=== PATIENT | female | born 1960 | race Caucasian/White ===

== ENCOUNTER 2024-07-03 08:00 | Observation (INO) ==
--- NOTE | 2024-06-26 10:39 | Anesthesiology Consultation ---
Date of Service June 26, 2024 Assessment & Plan Chart Review Chart Review: Acceptable Risk for Surgery and Patient NOT seen in Pre Admission Testing Consults Requested none History Surgery Operation Date: 07/03/24 08:15 Proposed Procedures p OP: Right Total Knee Replacement - Cristiano Hager MD Height/Weight Height: 5 ft Weight: 77.111 kg Allergies Allergy/AdvReac Type Severity Reaction Status Date / Time prochlorperazine Allergy Severe Swelling Verified 06/23/24 15:01 [From Compazine] of Lip/Tongue/Throat levofloxacin [From Levaquin] AdvReac Intermediate feels weird Verified 06/23/24 15:01 sulfamethoxazole AdvReac Intermediate feels weird Verified 06/23/24 15:01 [From Bactrim] tramadol AdvReac Intermediate interferes Verified 06/23/24 15:01 w/ trintellix trimethoprim [From Bactrim] AdvReac Intermediate feels weird Verified 06/23/24 15:01 Medications Home Medications Medication Instructions Recorded Confirmed Last Taken Bifidobacterium infantis 4 mg 4 mg PO DAILY 12/18/23 06/23/24 01/23/24 10:30 capsule (Align) bupropion HCl 300 mg 24 hr tablet, 300 mg PO QAM 12/18/23 06/23/24 01/23/24 10:30 extended release (Wellbutrin XL) calcitriol 0.5 mcg capsule 0.5 mcg PO HS 12/18/23 06/23/24 01/23/24 23:00 dextroamphetamine-amphetamine 10 10 mg PO QAM 12/18/23 06/23/24 01/23/24 10:30 mg tablet (Adderall) lorazepam 1 mg tablet (Ativan) 1 - 1.5 mg PO BID PRN interstitial 12/18/23 06/23/24 01/23/24 23:00 cystitis 1.5 tabs rosuvastatin 5 mg tablet 5 mg PO HS 12/18/23 06/23/24 01/23/24 23:00 trazodone 50 mg tablet 50 mg PO HS 12/18/23 06/23/24 01/23/24 23:00 valsartan 320 1 tab PO QAM 12/18/23 06/23/24 01/24/24 04:15 mg-hydrochlorothiazide 12.5 mg tablet vortioxetine 20 mg tablet 20 mg PO QAM 12/18/23 06/23/24 01/23/24 10:30 (Trintellix) Hydrocodone Polistirex 1 dose PO BID PRN interstitial 06/23/24 06/23/24 Unknown cystitis cholecalciferol (vitamin D3) 50 50 mcg PO DAILY 06/23/24 06/23/24 Unknown mcg (2,000 unit) capsule (Vitamin D3) Past Medical History Medical History Hyperglycemia Hgb A1C 6.2 in 10/2023 Heart murmur mild - most recent ECHO 05/2023 No significant murmur noted at PAT appt 12/19/23 Anxiety Depression ADD (attention deficit disorder) Dyslipidemia HTN (hypertension) Interstitial cystitis Past Family History Family History Other No family history of adverse response to anesthesia Past Surgical History Surgical History History of left knee replacement (01/24/24) [facility] Hx of colonoscopy Hx of tooth extraction Hx of cystoscopy "bladder stretching" Social History Smoking Status: Current every day smoker Smoking cigarettes per day: 7-8 cigs per day- advised Do You Dip or Chew Tobacco: No Hx Alcohol Use: Yes Alcohol type: wine alcohol intake frequency: a few times a week Hx Substance Use: No substance use type: does not use Lab Results Anesthesia Preop Results Results Anesthesia Widget: WBC 7.20 K/ul (4.8-10.8) 06/23/24 Hgb 12.9 g/dl (12.0-16.0) 06/23/24 Hct 39.7 % (37.0-47.0) 06/23/24 Plt 242 K/uL (130-400) 06/23/24 Na 139 mmol/L (136-145) 06/23/24 K 4.3 mmol/L (3.5-5.1) 06/23/24 Cl 102 mmol/L (98-107) 06/23/24 CO2 29 mmol/L (21-32) 06/23/24 BUN 19 mg/dl (6-23) 06/23/24 Creat 0.69 mg/dl (0.6-1.2) 06/23/24 Glucose Level 116 mg/dl (70-99(Fasting)) H 06/23/24 PT 10.1 Seconds (9.0-12.0) 06/23/24 PTT 25 Seconds (21-31) 06/23/24 INR 0.9 (0.9-1.1) 06/23/24 Testing Electrocardiogram Date: 05/10/23 SR at 74bpm Normal EKG per confirming provider Chest X-Ray Date: 12/19/23 FINDINGS: No lines and tubes are seen. The cardiomediastinal silhouette is normal. The lungs are clear. No evidence of pleural effusion or pneumothorax. IMPRESSION: No acute abnormalities and in particular no radiographic evidence of pneumonia. Echocardiogram Date: 06/06/23 Date: 06/06/23 EF: 60-65% LV Function: normal RWMA: + none Other Findings: + LVH (mild) and + diastolic dysfunction (Grade I ) Borderline MVP appears to be present. AV appears sclerotic with preserved opening in systole. Trace AR. There is an eccentric jet of aortic insufficiency directed against the anterior mitral leaflet. No
--- NOTE | 2024-07-01 15:46 | History & Physical Report ---
Date of Service July 01, 2024 Assessment & Plan (1) DJD (degenerative joint disease) of knee: Plan: Right total knee replacement with patient's specific technology possible same- day surgery [facility] health [facility] with [facility] History of Present Illness Chief Complaint: Right knee pain Primary Care Provider: Chuck Mohan MD Patient is an obese 63-year-old female without a history of bilateral severe knee severe knee arthritis. She had successful left total knee replacement done 01/24/2024. She was planned for staged right knee replacement in February but needed more time to recover. She now presents for elective second stage right knee replacement. She has failed injections bracing and physical therapy she has radiographic evidence of end-stage disease with [id number] contact varus deformity. Allergies Allergy/AdvReac Type Severity Reaction Status Date / Time prochlorperazine Allergy Severe Swelling Verified 06/23/24 15:01 [From Compazine] of Lip/Tongue/Throat levofloxacin [From Levaquin] AdvReac Intermediate feels weird Verified 06/23/24 15:01 sulfamethoxazole AdvReac Intermediate feels weird Verified 06/23/24 15:01 [From Bactrim] tramadol AdvReac Intermediate interferes Verified 06/23/24 15:01 w/ trintellix trimethoprim [From Bactrim] AdvReac Intermediate feels weird Verified 06/23/24 15:01 Home Medications Medication Instructions Recorded Confirmed Type Bifidobacterium infantis 4 mg 4 mg PO DAILY 12/18/23 06/23/24 History capsule (Align) bupropion HCl 300 mg 24 hr tablet, 300 mg PO QAM 12/18/23 06/23/24 History extended release (Wellbutrin XL) calcitriol 0.5 mcg capsule 0.5 mcg PO HS 12/18/23 06/23/24 History dextroamphetamine-amphetamine 10 10 mg PO QAM 12/18/23 06/23/24 History mg tablet (Adderall) lorazepam 1 mg tablet (Ativan) 1 - 1.5 mg PO BID PRN interstitial 12/18/23 06/23/24 History cystitis rosuvastatin 5 mg tablet 5 mg PO HS 12/18/23 06/23/24 History trazodone 50 mg tablet 50 mg PO HS 12/18/23 06/23/24 History valsartan 320 1 tab PO QAM 12/18/23 06/23/24 History mg-hydrochlorothiazide 12.5 mg tablet vortioxetine 20 mg tablet 20 mg PO QAM 12/18/23 06/23/24 History (Trintellix) Hydrocodone Polistirex 1 dose PO BID PRN interstitial 06/23/24 06/23/24 History cystitis cholecalciferol (vitamin D3) 50 50 mcg PO DAILY 06/23/24 06/23/24 History mcg (2,000 unit) capsule (Vitamin D3) Past Med/Surg History Problem List DJD (degenerative joint disease) of knee Encounter for pre-operative examination Medical History Hyperglycemia Hgb A1C 6.2 in 10/2023 Heart murmur mild - most recent ECHO 05/2023 No significant murmur noted at PAT appt 12/19/23 Anxiety Depression ADD (attention deficit disorder) Dyslipidemia HTN (hypertension) Interstitial cystitis Surgical History History of left knee replacement (01/24/24) [facility] Hx of colonoscopy Hx of tooth extraction Hx of cystoscopy "bladder stretching" Family History Other No family history of adverse response to anesthesia Social History Smoking Status: Current every day smoker Tobacco Type: Cigarettes Cigarettes Per Day: 7-8 cigs per day- advised; Second Hand Exposure: No; Do You Dip or Chew Tobacco: No; Hx Alcohol Use: Yes Alcohol type: wine Hx Substance Use: No Preferred Language: Telugu Communication Ability: Effective Solid Die Cutter Required: No Beliefs That Will Affect Care: None Current Living Situation: Spouse Feels Safe at Home: Yes Assistive Devices: None Review of Systems Review of Systems: Knee pain Physical Exam Physical Exam: Weight 79 kg BMI 34 General: Obese female who appears older than her stated age HEENT NCAT, EOMI, PERRLA Neck: Supple without bruits Heart: Regular rate and rhythm grade 1/6 to 2/6 systolic murmur Lungs: Breath sounds clear in all matute Abdomen: Obese soft nontender bowel sounds are positive Extremities: Right knee shows varus deformity range of motion is 0 to 110 degrees of flexion with trace medial laxity positive effusion and pain Left knee shows well-healed scar consistent with previous surgery Neurological and vascular: Intact Results & Data Results & Data Vital Signs (Past 12 Hours) Blood pressure 120/78 Pulse 82
[~2024-07-03 08:00] MED LIST: BUPIVACAINE 0.25% PF 30 ML VIAL ONE; DEXAMETHASONE SOD INJ 4 MG/ML VIAL ONE; EPINEPHrine INJ 1 MG/ML AMP ONE; MEPIVACAINE HCL 1.5% 30 ML VIAL ONE
[2024-07-03] MEDS: LR 500ML BOLUS, THEN 15ML/HR IV SCH (09:02)
[2024-07-03] MEDS: GABAPENTIN 300 MG CAP PO SCH (09:24)
[2024-07-03] MEDS: LR 60ML/HR IV SCH (09:24)
[2024-07-03] MEDS: FAMOTIDINE 20 MG TAB PO SCH (09:24)
[2024-07-03] MEDS: ACETAMINOPHEN 500 MG TAB PO SCH (09:24)
[2024-07-03] MEDS: oxyCODONE HCL 10 MG TABCR (OxyCONTIN) PO SCH (09:24)
[2024-07-03] MEDS: METOCLOPRAMIDE HCL 10 MG TABLET PO SCH (09:24)
[2024-07-03] MEDS: dexAMETHasone**PF** 10 MG/ML VIAL IV SCH (09:29)
--- NOTE | 2024-07-03 09:35 | History & Physical Bridge Note ---
Date of Service July 03, 2024 History & Physical Bridge Note I have examined the patient, reviewed the History & Physical and in the interval since the performance of the History & Physical I have noted the following changes of clinical significance: no changes noted
[2024-07-03] MEDS ORDERED: MIDAZOLAM HCL 1 MG/ML 2ML VIAL ONE ×2 (09:54→09:57)
[2024-07-03] MEDS ORDERED: ATROPINE SULFATE 0.1 MG/ML 10ML SYR IV PRN (09:58)
[2024-07-03] MEDS ORDERED: ONDANSETRON INJ 2 MG/ML 2 ML VIAL IV PRN ×2 (09:58→17:57)
[2024-07-03] MEDS ORDERED: ePHEDrine sulfate 50 MG/ML AMP IV PRN (09:58)
[2024-07-03] MEDS ORDERED: ONDANSETRON INJ 2 MG/ML 2 ML VIAL ONE (10:43)
[2024-07-03] MEDS ORDERED: PROPOFOL IV EMULSION 10 MG/ML 20 ML VIAL IV ONE ×3 (10:43→12:35)
[2024-07-03] MEDS: TRANEXAMIC ACID 1,000 MG **IV Pre-op IV SCH (10:51)
[2024-07-03] MEDS: ceFAZolin 2000MG 2,000 MG/15 ML SYR IV SCH ×2 (11:11→21:32)
[2024-07-03] MEDS ORDERED: LIDOCAINE 2% 2 ML VIAL/AMP(20MG/ML) INFIL ONE (11:24)
[2024-07-03] MEDS: ORTHO JOINT ANESTHETIC ONE (11:50)
[2024-07-03] MEDS: ROPIV 0.5% 246mg, Ketorolac 30mg, EPINEPHrine 0.5mg in NSS INFIL SCH (11:50)
[2024-07-03] MEDS ORDERED: LABETALOL HCL IV 5 MG/ML 20ML IV ONE (11:57)
[2024-07-03] MEDS ORDERED: KETOROLAC 30 MG/ML VIAL ONE (12:14)
--- NOTE | 2024-07-03 12:17 | Post Operative Brief Note ---
Immediate Post Op Note Date of Surgery July 03, 2024 Pre & Post Diagnosis Operation Date: 07/03/24 10:35 Pre-Op Diagnosis: Right Knee Degenerative Joint Disease Post-Op Diagnosis: Right Knee Degenerative Joint Disease I identified the patient and participated in the time-out.: Yes Procedure Operation Date: 07/03/24 10:35 Actual Procedures p Right Total Knee Replacement(Right) - Cristiano Hager MD Surgeon Cristiano Hager MD [employer] Digeo Suárez PA-C Estimated Blood Loss 100 Findings Consistent with Post-Op Diagnosis Drains Hemovac Drain
[2024-07-03] MEDS: TRANEXAMIC ACID 1,000 MG **IV Intra-op IV SCH (12:19)
[2024-07-03] MEDS: fentaNYL citrate PF 100 MCG/2 ML VIAL IV PRN (13:18)
[2024-07-03] MEDS: oxyCODONE HCL IR 5 MG TAB (IMMEDIATE RELEASE) PO PRN ×2 (14:08→16:58)
--- NOTE | 2024-07-03 14:29 | Operative Report ---
Post Operative Report Pre & Post Diagnosis Operation Date: 07/03/24 10:35 Pre-Op Diagnosis: Right Knee Degenerative Joint Disease Post-Op Diagnosis: Right Knee Degenerative Joint Disease I identified the patient and participated in the time-out.: Yes Procedure Operation Date: 07/03/24 10:35 Actual Procedures p Right Total Knee Replacement(Right) - Cristiano Hager MD Surgeon Cristiano Hager MD [employer] Ho[employer] Operator Diego Suárez PA-C Estimated Blood Loss 100 Findings Consistent with Post-Op Diagnosis Patient had tricompartmental degenerative changes. There was a severely chronically inflamed synovial lining. Patient had an extremely bulky small body stature although she had a heavy short leg curve bony components were extremely small. Specimens Bone and cartilage fragments Complications none Indications components used: [employer] journey 2 posterior stabilized knee system: Femur size 2 with Oxinium coating, tibia size 2 x 11, patella size 32 oval. Description of Procedure Following satisfactory spinal anesthesia the patient was supine on the operating room table. The right lower extremity was prepared with ChloraPrep and draped sterilely. A surgical timeout was performed. A midline incision was made and deepened through a fairly large subcutaneous fat layer. Hemostasis was obtained. A median parapatellar arthrotomy was performed and the knee showed the changes noted above. Because of the short stature and tight nature of the exposure attention was turned to the patella. The patella was freehand cut and sized for a 32 button which did relax the extensor mechanism and enhanced exposure to the lateral side of the knee. The cruciate ligaments were excised. The patient matched femoral block was applied. Femoral distal rotation and resection resetting completed. The 4-in-1 block was used to finish preparation of the femur. The tibial meniscal fragments were excised. The patient matched tibial block was applied. Tibial resection was completed. Soft tissue balancing was completed for flexion and extension. A trial reduction with the above-mentioned components was performed. This showed good tensioning and stability on the collateral ligaments from extension to about 115 degrees of flexion and the patella tracked well throughout. The trial components were removed. Capsule was prepared with the orthopedic cocktail. After irrigation and drying the components were cemented using Manpreet Z be cement cementing the tibia first, femur second, and patella third. When the cemented hardened the knee was checked and showed similar stability and patellar tracking. The wound was irrigated with 500 cc of experience irrigation. A Hemovac drain was placed. The capsulotomy was closed with interrupted [id number] sutures of 1 Vicryl and a running suture of #1 strata fix. Following irrigation the subcutaneous tissues were closed with 2 oh strata fix deep and 3 oh strata fix superficial. Dermabond Prineo and a negative pressure wound dressing were applied. Patient was returned to her bed and taken to the recovery room having tolerated the procedure in good condition. Note: Diego ARIAS was present and assisted throughout due to the complicated nature of this case. He help with preparation and set up, he first assisted throughout, he assisted with hemostasis and exposure throughout the procedure. He also closed the capsular subcutaneous and skin layers and applied the postop dressing. I attest to the content of the Intraoperative Record and any orders documented therein. Any exceptions are noted below.
--- NOTE | 2024-07-03 14:32 | Anesthesiology Progress Note ---
Date of Service July 03, 2024 Anesthesia Post Procedure Vital Signs Vital Signs: Temp Pulse Pulse Resp BP Pulse Ox O2 Del Method 07/03/24 14:20 64 18 166/99 H 96 Room Air 07/03/24 13:40 36.4 C L 61 18 146/77 H 97 Room Air 07/03/24 13:35 58 L 18 155/70 H 93 Room Air 07/03/24 13:25 58 L 20 139/86 93 Room Air 07/03/24 13:15 36.4 C L 57 L 18 155/87 H 96 Room Air 07/03/24 13:05 54 L 15 163/85 H 100 Oxymask 07/03/24 12:55 36.5 C 57 L 15 122/100 97 Oxymask 07/03/24 09:07 36.8 C 73 18 167/93 H 97 Room Air O2 Flow Rate 07/03/24 14:20 07/03/24 13:40 07/03/24 13:35 07/03/24 13:25 07/03/24 13:15 07/03/24 13:05 6 07/03/24 12:55 6 07/03/24 09:07 Pain Intensity Left Shoulder: Pain Intensity: 5 Right Knee: Pain Intensity: 3 Left Knee: Pain Intensity: 6 Transfer of Care Handoff Completed per policy Notes Mental Status: alert / awake / arousable Patient Amnestic to Procedure: Yes Nausea / Vomiting: adequately controlled Pain: adequately controlled Airway Patency, RR, SpO2: stable & adequate BP & HR: stable & adequate Hydration State: stable & adequate Anesthetic Complications: no major complications apparent
[2024-07-03] MEDS: ceFAZolin 2000MG 2,000 MG/15 ML SYR IV ONE (15:26)
--- NOTE | 2024-07-03 17:34 | XRay Report ---
XR knee RT 1 or 2V routine HISTORY: 63 years-old Female Surgical Post Op right knee arthroplasty COMPARISON: None TECHNIQUE: 2 views of the right knee FINDINGS: Total arthroplasty with patellar resurfacing. Expected postoperative soft tissue swelling and deep ti ssue air or surgical drainage catheter. IMPRESSION: Total joint arthroplasty with expected postoperative changes. ACT 112: Negative or not required by law. The above report was generated using voice recognition software. It may contain grammatical, syntax o r spelling errors. Electronically signed by: Altaf Macias M.D. 07/03/2024 5:33 PM
[2024-07-03] MEDS ORDERED: MAGNESIUM HYDROXIDE SUSP 30 ML UDC PO PRN (17:57)
[2024-07-03] MEDS ORDERED: bisacodyL 10 MG SUPP PR PRN (17:57)
[2024-07-03] MEDS ORDERED: NALOXONE HCL 0.4 MG/1 ML VIAL/CARP IV PRN (17:57)
[2024-07-03] MEDS ORDERED: diphenhydrAMINE 50 MG/ML VIAL IV PRN (17:57)
[2024-07-03] MEDS: SODIUM CHLORIDE 0.9% 1,000 ML IV SCH (18:19)
[2024-07-03] MEDS: HYDROmorphone INJ 0.5 MG/0.5 ML SYR IV PRN (19:26)
[2024-07-03] MEDS: SENNA 8.6 MG TAB PO SCH (21:31)
[2024-07-03] MEDS: DOCUSATE SODIUM 100 MG CAP PO SCH (21:31)
[2024-07-03] MEDS: traZODone HCL 50 MG TAB PO SCH (21:32)
[2024-07-03] MEDS: ASPIRIN 81 MG ECTAB PO SCH (21:32)
[2024-07-03] MEDS: CALCITRIOL 0.25 MCG CAPSULE PO SCH (21:33)
[2024-07-04 06:47] LABS: Hematocrit (blood only) 29.9 % (37.0-47.0); Hemoglobin 10.2 g/dl (12.0-16.0); Mean Corpuscular Hemoglobin 28.8 pg (25.0-34.0); Mean Corpuscular Hgb Conc 34.1 g/dL (32.0-36.0); Mean Corpuscular Volume 84.5 fL (80.0-100.0); Mean Platelet Volume 9.9 fL (9.4-12.4); Platelet Count 201 K/uL (130-400); RDW Coefficient of Variation 14.6 % (11.5-14.5); RDW Standard Deviation 45.4 fL (36.4-46.3); Red Blood Count 3.54 M/uL (4.20-5.40); White Blood Count 14.03 K/ul (4.8-10.8)
[2024-07-04 07:08] LABS: BUN Creatinine Ratio 25.7 (10-20); Calcium 8.9 mg/dl (8.6-10.3); Creatinine Clr Calc Pharmacy 72.5 ml/min; Est GFR (African American) 105.4 ml/min; Est GFR (Non-African American) 90.9 ml/min; Potassium 3.7 mmol/L (3.5-5.1)
--- NOTE | 2024-07-04 07:19 | Orthopedic Progress Note ---
Date of Service July 04, 2024 Assessment & Plan (1) DJD (degenerative joint disease) of knee: Plan: Postop day 1 status post right total knee arthroplasty PT/OT protocols. Weightbearing as tolerated. DVT prophylaxis-aspirin p.o. twice daily, SCDs pain management as written. DC planning-patient will be receiving home health services upon discharge. Home PT and home nursing will remove dressing and drain on postop day 2. Admission and Anticipated Discharge Date Admission Date: July 03, 2024 Subjective postop day 1 patient sleeping upon arrival but easily awoken. Patient was unable to be discharged yesterday secondary to a dense nerve block and inability to ambulate. This morning she states this is much better. Sensation and motor function returned during the night. She was having some mild knee pain this morning and pain meds were given which are helping. Physical Exam Physical Exam: Dressings are clean, dry, and intact. Calves are soft nontender. Neurovascular is intact. Toes are mobile. She has good dorsiflexion and plantarflexion strength of the right foot. Hemovac drainage was 225cc from the previous shift. Results & Data Vital Signs (Past 12 Hours) Vital Signs Temp Pulse Pulse Resp BP Pulse Ox O2 Del Method 07/04/24 07:10 37 C 71 18 151/79 H 96 Room Air 07/04/24 04:00 37.3 C 81 18 129/74 96 Room Air 07/03/24 22:57 36.8 C 79 18 134/73 96 Room Air Laboratory Results Laboratory Results WBC 14.03 K/ul (4.8-10.8) H 07/04/24 06:10 RBC 3.54 M/uL (4.20-5.40) L 07/04/24 06:10 Hgb 10.2 g/dl (12.0-16.0) L 07/04/24 06:10 Hct 29.9 % (37.0-47.0) L 07/04/24 06:10 MCV 84.5 fL (80.0-100.0) 07/04/24 06:10 MCH 28.8 pg (25.0-34.0) 07/04/24 06:10 MCHC 34.1 g/dL (32.0-36.0) 07/04/24 06:10 RDW Std Deviation 45.4 fL (36.4-46.3) 07/04/24 06:10 RDW Coeff of Isidoro 14.6 % (11.5-14.5) H 07/04/24 06:10 Plt Count 201 K/uL (130-400) 07/04/24 06:10 MPV 9.9 fL (9.4-12.4) 07/04/24 06:10 Sodium 143 mmol/L (136-145) 07/04/24 06:10 Potassium 3.7 mmol/L (3.5-5.1) 07/04/24 06:10 Chloride 108 mmol/L (98-107) H 07/04/24 06:10 Carbon Dioxide 28 mmol/L (21-32) 07/04/24 06:10 Anion Gap 7 (3-11) 07/04/24 06:10 BUN 18 mg/dl (6-23) 07/04/24 06:10 Creatinine 0.70 mg/dl (0.6-1.2) 07/04/24 06:10 Est Cr Clr Drug Dosing 72.5 ml/min 07/04/24 06:10 Est GFR ( Amer) 105.4 ml/min 07/04/24 06:10 Est GFR (Non-Af Amer) 90.9 ml/min 07/04/24 06:10 BUN/Creatinine Ratio 25.7 (10-20) H 07/04/24 06:10 Glucose 192 mg/dl (70-99(Fasting)) H 07/04/24 06:10 Calcium 8.9 mg/dl (8.6-10.3) 07/04/24 06:10 Blood Type A Positive 07/03/24 08:35 Antibody Screen NEGATIVE 07/03/24 08:35 Impressions Knee X-Ray 07/03/24 16:26 XR knee RT 1 or 2V routine HISTORY: 63 years-old Female Surgical Post Op right knee arthroplasty COMPARISON: None TECHNIQUE: 2 views of the right knee FINDINGS: Total arthroplasty with patellar resurfacing. Expected postoperative soft tissue swelling and deep tissue air or surgical drainage catheter. IMPRESSION: Total joint arthroplasty with expected postoperative changes. ACT 112: Negative or not required by law. The above report was generated using voice recognition software. It may contain grammatical, syntax or spelling errors. Electronically signed by: Altaf Macias M.D. 07/03/2024 5:33 PM
[2024-07-04] MEDS: ACETAMINOPHEN 500 MG TAB PO PRN (08:22)
[2024-07-04] MEDS: VALSARTAN 80 MG TAB PO SCH (08:24)
[2024-07-04] MEDS: MULTIVITAMIN TAB PO SCH (08:26)
[2024-07-04] MEDS: buPROPion XL 300 MG TABCR PO SCH (08:27)
[2024-07-04] MEDS: hydroCHLOROthiazide 25 MG TAB PO SCH (08:28)
[2024-07-04] MEDS: CHOLECALCIFEROL 25 MCG (1000 UNITS) TAB PO SCH (08:28)
[2024-07-04] MEDS: DEXTROAMPHETAMINE/AMPHETAMINE IR 10 MG TAB PO SCH (08:35)
[2024-07-04 08:36] VITALS: BP 156/77; PULSE 72; RESP 17; TEMP 97.9; O2SAT 97
== END 2024-07-04 11:35 | disposition home health service (06) ==
LOC: ASU 08:00 → 3E 08:00